=== PATIENT | male | born 1955 ===

== ENCOUNTER 2025-07-12 09:30 | Outpatient (CLI) | payer SELFPAY ==
--- NOTE | 2025-07-12 09:38 | USR_ITS ---
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 Waveforms were obtained and evaluated. Images were documented and archived. Exam is limited. COMPARISON: No relevant prior studies available. FINDINGS: Right Ankle-Brachial Index: 0.90. Ankle digit index is 0.81 Left Ankle-Brachial Index: 0.87. Ankle digit index is 0.79. US/CV ankle brachial index 21605 IMPRESSION: Mild bilateral lower extremity peripheral vascular disease. If clinically indicated, MR angiogram or CT angiogram of the lower extremity can be obtained for further evaluation.
== END 2025-07-12 09:31 | disposition home or self-care (01) ==
LOC: RAD 09:33
PROVIDERS: PCP Family Medicine; Visit Provider Family Medicine
DX: E11.42 Type 2 diabetes mellitus with diabetic polyneuropathy (principal); Z79.4 Long term (current) use of insulin; I73.9 Peripheral vascular disease, unspecified
CPT/HCPCS: 93922

== ENCOUNTER → 2025-07-21 09:54 | Outpatient (BNVA) | payer MEDICARE, SELFPAY | PROVIDERS: PCP Family Medicine; Visit Provider Podiatrist Foot & Ankle Surgery | DX: E11.42 Type 2 diabetes mellitus with diabetic polyneuropathy (principal); L60.3 Nail dystrophy; L60.8 Other nail disorders; G62.9 Polyneuropathy, unspecified | CPT/HCPCS: 11721; 99203 ==